=== PATIENT | female | born 1955 ===

== ENCOUNTER 2017-07-29 09:36 | Day surgery (SDC) | payer MEDICARE, SELFPAY ==
[~2017-07-29] VITALS: Ht 157.5 cm; Wt 102.1 kg
[~2017-07-29 09:36] MED LIST: BRINTELLIX20 MG; CARV6.25 PO; CYCL10 PO; GABA300 PO; GLUCOSAMINE &1 EACH PO; HYDHCL25 PO; LEVSOD75 PO; NAPR500; PREG75 PO; TRAZ100 PO; VENL75ER PO; VITAMIN D-32000 UNI1 PO; Voltaren100 GM; Zestril40 MG PO
[2017-07-29] MEDS ORDERED: ALBU90OI61 INH (10:06)
[2017-07-30 04:25] LABS: BASOPHILS ABSOLUTE AUTO 0.01 K/mm3 (0.00-0.23); BASOPHILS PERCENT AUTO 0 % (0-2); EOSINOPHILS PERCENT AUTO 0 % (0-6); Hematocrit 30.5 % (33.0-51.0); Hemoglobin 10.1 g/dL (11.5-16.0); IMMATURE GRAN ABSOLUTE AUTO 0.04 K/mm3 (0.00-0.10); IMMATURE GRAN PERCENT AUTO 1 % (0-1); LYMPHOCYTES ABSOLUTE AUTO 0.91 K/mm3 (0.84-5.20); LYMPHOCYTES PERCENT AUTO 11 % (21-46); MONOCYTES ABSOLUTE AUTO 0.51 K/mm3 (0.16-1.47); MONOCYTES PERCENT AUTO 6 % (4-13); Mean Corpuscular HGB Conc 33.1 g/dL (31.5-36.5); Mean Corpuscular Volume 91 fL (80-100); Mean Platelet Volume 10.6 fL (9.1-12.4); NEUTROPHILS ABSOLUTE AUTO 6.98 K/mm3 (1.96-9.15); NEUTROPHILS PERCENT AUTO 83 % (41-73); Platelet Count 146 K/mm3 (150-400); RDW Coefficient Variation 12.8 % (11.7-14.2); Red Blood Cell Count 3.37 M/mm3 (3.80-5.20); White Blood Cell Count 8.45 K/mm3 (4.00-11.30)
[2017-07-30 04:37] LABS: Bun/Creatinine Ratio 20.2 (12.0-20.0); Calcium, Blood 8.6 mg/dL (8.5-10.1); Creatinine, Blood 1.24 mg/dL (0.40-1.00); Magnesium, Blood 1.9 mg/dL (1.6-2.4); Potassium, Blood 4.9 mmol/L (3.5-5.5)
[2017-07-30] MEDS ORDERED: ASPI325EC PO (14:53)
[2017-07-30] MEDS ORDERED: ROXICODONE5 MG PO (14:53)
[2017-07-30] MEDS ORDERED: Promethazine12.5 M1 PO (14:54)
== END 2017-07-30 15:41 | disposition home or self-care (01) ==
LOC: SURS 09:36 → PRE IP 09:36 → ORSCMMR 09:36 → SURS 09:36 → EDSTATUS 12:30 → PRE IP 12:30 → SURS 15:21 → ORSCMMR 07-30 15:41 → SURS 07-30 15:41
PROVIDERS: Orthopaedic Surgery
PROC: 0SRC0J9 Replacement of Right Knee Joint with Synthetic Substitute, Cemented, Open Approach (ICD-10-PCS; principal; 2017-07-29 12:30)
DX: M17.11 Unilateral primary osteoarthritis, right knee (principal); Z01.818 Encounter for other preprocedural examination; Z01.812 Encounter for preprocedural laboratory examination; I10 Essential (primary) hypertension; I48.91 Unspecified atrial fibrillation; N18.9 Chronic kidney disease, unspecified; J45.909 Unspecified asthma, uncomplicated; Z87.891 Personal history of nicotine dependence; Z79.899 Other long term (current) drug therapy
CPT/HCPCS: 36415; 73560-RT; 80048; 83735; 85025; 86850; 86900; 86901; 88300; 94640; 94760; 97110; 97116; 97162; 97530; C1713; C1776; G8978; G8979; J0171; J0735; J1100; J1170; J1885; J2250; J2370; J2405; J2550; J2795; J3010; J3370; J7120; Q0163

== ENCOUNTER → 2020-03-08 | Outpatient (CLI) | payer MEDICARE, OTHER ==
[~2020-03-08] MED LIST changes: +ALBU90OI61 INH; +ASPI325EC PO; +Promethazine12.5 M1 PO; +ROXICODONE5 MG PO
[2020-03-12 15:08] LABS: ALBUMIN 2.8 g/dL (2.9-4.4); ALPHA-1-GLOBULIN 0.2 g/dL (0.0-0.4); ALPHA-2-GLOBULIN 0.7 g/dL (0.4-1.0); BETA GLOBULIN 0.8 g/dL (0.7-1.3); GAMMA GLOBULIN 1.1 g/dL (0.4-1.8); GLOBULIN, TOTAL 2.9 g/dL (2.2-3.9); IMMUNOGLOBULIN A, QN, SERUM 93 mg/dL (87-352); IMMUNOGLOBULIN G, QN, SERUM 1130 mg/dL (586-1602); IMMUNOGLOBULIN M, QN, SERUM 23 mg/dL (26-217); M-SPIKE 0.7 g/dL (Not Observed); PROTEIN, TOTAL, SERUM 5.7 g/dL (6.0-8.5)
== END | disposition home or self-care (01) ==
LOC: LAB SHORT 18:09 → LAB 18:09
PROVIDERS: Internal Medicine Hematology & Oncology
DX: D47.2 Monoclonal gammopathy (principal)
CPT/HCPCS: 82784; 83883; 84155; 84165; 86334

== ENCOUNTER → 2020-03-17 | Outpatient (CLI) | payer MEDICARE | END | disposition home or self-care (01) | LOC: LAB EV 11:00 → LAB SHORT 11:00 | DX: K21.9 Gastro-esophageal reflux disease without esophagitis (principal) | CPT/HCPCS: 87338 ==

== ENCOUNTER → 2020-05-23 | Outpatient (CLI) | payer MEDICARE ==
[~2020-05-23] MED LIST changes: +ACETAMINOP160 MG/51 PO; +ALPR.25 PO; +ATROPINE SULFATE2 M5 SL; +BUPR150ER PO; +DEXA4 PO; +FENTANYL1 EA10 TD; +Kristalose20 GM PO; +OMEP20ER PO; +ONDA4ODT MM; +ONDA4ODT SL; +OXYB5 PO; +QUET200 PO; +QUET300 PO; +TRANSDERM-SCOP1 EAC4 TD
[2020-05-23 15:50] LABS: BASOPHILS ABSOLUTE AUTO 0.03 K/mm3 (0.00-0.23); BASOPHILS PERCENT AUTO 0 % (0-2); EOSINOPHILS ABSOLUTE AUTO 0.08 K/mm3 (0.00-0.68); EOSINOPHILS PERCENT AUTO 1 % (0-6); Hematocrit 39.2 % (33.0-51.0); Hemoglobin 13.6 g/dL (11.5-16.0); IMMATURE GRAN ABSOLUTE AUTO 0.03 K/mm3 (0.00-0.10); IMMATURE GRAN PERCENT AUTO 0 % (0-1); LYMPHOCYTES ABSOLUTE AUTO 0.75 K/mm3 (0.84-5.20); LYMPHOCYTES PERCENT AUTO 11 % (21-46); MONOCYTES ABSOLUTE AUTO 0.74 K/mm3 (0.16-1.47); MONOCYTES PERCENT AUTO 11 % (4-13); Mean Corpuscular HGB 31.1 pg (26.0-34.0); Mean Corpuscular HGB Conc 34.7 g/dL (31.5-36.5); Mean Corpuscular Volume 90 fL (80-100); Mean Platelet Volume 11.2 fL (9.1-12.4); NEUTROPHILS ABSOLUTE AUTO 5.16 K/mm3 (1.96-9.15); NEUTROPHILS PERCENT AUTO 76 % (41-73); Platelet Count 213 K/mm3 (150-400); RDW Coefficient Variation 12.6 % (11.7-14.2); RDW Standard Deviation 41.3 fL (35.1-46.3); Red Blood Cell Count 4.38 M/mm3 (3.80-5.20); White Blood Cell Count 6.79 K/mm3 (4.00-11.30)
[2020-05-23 16:01] LABS: Bun/Creatinine Ratio 16.6 (12.0-20.0); Calcium, Blood 9.9 mg/dL (8.5-10.1); Creatinine, Blood 1.45 mg/dL (0.40-1.00)
== END | disposition home or self-care (01) ==
LOC: LAB SHORT 15:45 → LAB 15:45
PROVIDERS: Family Medicine
DX: R11.2 Nausea with vomiting, unspecified (principal)
CPT/HCPCS: 80048; 83690; 85025

== ENCOUNTER 2020-06-16 14:03 | Inpatient (IN) | payer MEDICARE ==
[~2020-06-16] VITALS: Ht 160 cm; Wt 65.8 kg
[~2020-06-16 14:03] MED LIST changes: -ACETAMINOP160 MG/51 PO; -ALPR.25 PO; -ATROPINE SULFATE2 M5 SL; -BUPR150ER PO; -DEXA4 PO; -FENTANYL1 EA10 TD; -Kristalose20 GM PO; -OMEP20ER PO; -ONDA4ODT MM; -ONDA4ODT SL; -OXYB5 PO; -QUET200 PO; -QUET300 PO; -TRANSDERM-SCOP1 EAC4 TD
[2020-06-16 14:40] LABS: BASOPHILS ABSOLUTE AUTO 0.04 K/mm3 (0.00-0.23); BASOPHILS PERCENT AUTO 1 % (0-2); EOSINOPHILS ABSOLUTE AUTO 0.06 K/mm3 (0.00-0.68); EOSINOPHILS PERCENT AUTO 1 % (0-6); Hematocrit 36.7 % (33.0-51.0); Hemoglobin 12.5 g/dL (11.5-16.0); IMMATURE GRAN ABSOLUTE AUTO 0.04 K/mm3 (0.00-0.10); IMMATURE GRAN PERCENT AUTO 1 % (0-1); LYMPHOCYTES ABSOLUTE AUTO 0.49 K/mm3 (0.84-5.20); LYMPHOCYTES PERCENT AUTO 7 % (21-46); MONOCYTES ABSOLUTE AUTO 0.54 K/mm3 (0.16-1.47); MONOCYTES PERCENT AUTO 7 % (4-13); Mean Corpuscular HGB Conc 34.1 g/dL (31.5-36.5); Mean Corpuscular Volume 88 fL (80-100); NEUTROPHILS ABSOLUTE AUTO 6.23 K/mm3 (1.96-9.15); NEUTROPHILS PERCENT AUTO 84 % (41-73); Platelet Count 301 K/mm3 (150-400); RDW Coefficient Variation 11.9 % (11.7-14.2); RDW Standard Deviation 38.6 fL (35.1-46.3); Red Blood Cell Count 4.17 M/mm3 (3.80-5.20)
[2020-06-16] MEDS ORDERED: OXYB5 PO (14:43)
[2020-06-16 15:13] LABS: Albumin, Blood 2.9 g/dL (3.4-5.0); Albumin/Globulin Ratio 0.6 (0.8-1.8); Bilirubin, Total 1.1 mg/dL (0.1-1.0); Creatinine, Blood 1.75 mg/dL (0.40-1.00); Globulin, Blood 4.8 g/dL (2.2-4.0); Potassium, Blood 2.8 mmol/L (3.5-5.5); Thyroid Stimulating Hormone 1.49 uIU/mL (0.360-4.800); Total Protein, Blood 7.7 g/dL (6.4-8.2)
[2020-06-16 15:30] LABS: Source, Urine Clean Catch
[2020-06-16 15:33] LABS: Appearance, Urine Hazy (Clear); Blood, Urine Neg (Neg); Color, Urine Amber (P-Yellow); Glucose Qualitative, Urine Neg (Neg); Ketones, Urine 2+ (Neg); Leukocyte Esterase, Urine 1+ (Neg); Nitrite, Urine Neg (Neg); Protein, Urine 2+ (Neg); Urobilinogen, Urine 2+ (Normal)
[2020-06-16 15:49] LABS: Bilirubin, Urine 1+ (Neg)
[2020-06-16 15:50] LABS: Bacteria Many /hpf; Hyaline Casts 0-2 /lpf (0-2); Squamous Epithelial Cells Many /hpf (Few)
[2020-06-17 05:26] LABS: BASOPHILS ABSOLUTE AUTO 0.03 K/mm3 (0.00-0.23); BASOPHILS PERCENT AUTO 1 % (0-2); EOSINOPHILS ABSOLUTE AUTO 0.12 K/mm3 (0.00-0.68); EOSINOPHILS PERCENT AUTO 2 % (0-6); Hematocrit 30.5 % (33.0-51.0); Hemoglobin 10.4 g/dL (11.5-16.0); IMMATURE GRAN ABSOLUTE AUTO 0.03 K/mm3 (0.00-0.10); IMMATURE GRAN PERCENT AUTO 1 % (0-1); LYMPHOCYTES ABSOLUTE AUTO 0.45 K/mm3 (0.84-5.20); LYMPHOCYTES PERCENT AUTO 9 % (21-46); MONOCYTES ABSOLUTE AUTO 0.53 K/mm3 (0.16-1.47); MONOCYTES PERCENT AUTO 10 % (4-13); Mean Corpuscular HGB Conc 34.1 g/dL (31.5-36.5); Mean Corpuscular Volume 88 fL (80-100); NEUTROPHILS ABSOLUTE AUTO 4.13 K/mm3 (1.96-9.15); NEUTROPHILS PERCENT AUTO 78 % (41-73); Platelet Count 208 K/mm3 (150-400); RDW Coefficient Variation 11.9 % (11.7-14.2); RDW Standard Deviation 38.3 fL (35.1-46.3); Red Blood Cell Count 3.47 M/mm3 (3.80-5.20); White Blood Cell Count 5.29 K/mm3 (4.00-11.30)
--- NOTE | 2020-06-17 06:23 | NUR ---
SHIFT + ADMISSION SUMMARY PT ARRIVED TO UNIT @ APPROX 2004 FROM ED VIA WHEELCHAIR. PT WAS ABLE TO TRANSFER HERSELF TO THE BED AND APPEARED TO HAVE A STEADY GAIT. PT WAS ALSO ABLE TO AMBULATE HERSELF TO THE BATHROOM. PT WAS A&O, ABLE TO ANSWER QUESTIONS APPROPRAITELY. PT HAS HAD NO REPORTS OF NAUSEA SINCE ARRIVAL, SHE WAS TREATED FOR PAIN X1 PER EMAR. FIRST BAG OF NS STARTED AND STILL RUNNING. TELE MONITOR IN PLACE, RUNNING SINUS TACHYCARDIC T/O SHIFT. PT SELPT WELL THROUGH THE NIGHT AND IS STILL CURRENTLY SLEEPING. CALL LIGHT IS WITHIN REACH. PT APPEARS TO BE IN NO DISTRESS.
[2020-06-17 06:26] LABS: Albumin, Blood 2.4 g/dL (3.4-5.0); Albumin/Globulin Ratio 0.6 (0.8-1.8); Bilirubin, Total 0.9 mg/dL (0.1-1.0); Bun/Creatinine Ratio 35.1 (12.0-20.0); Creatinine, Blood 1.51 mg/dL (0.40-1.00); Globulin, Blood 3.9 g/dL (2.2-4.0); Total Protein, Blood 6.3 g/dL (6.4-8.2)
--- NOTE | 2020-06-17 15:44 | NUR ---
OFFERED PT HEAT/COLD THERAPY AND PT DENIED. NURSE AWARE.
--- NOTE | 2020-06-17 18:07 | NUR ---
SHIFT SUMMARY PT HAS HAD NAUSEA THROUGH OUT THE SHIFT. ZOFRAN AND PHENERGAN ADMINISTERED MULTIPLE TIMES FOR NAUSEA. NO EMESIS. MEDICATED FOR BACK PAIN X2 THIS SHIFT WITH FENTANYL. PT EATING SMALL AMOUNTS. UP TO BATHROOM WITH STAND-BY ASSIST. NO ACUTE CHANGES THIS SHIFT. CALL LIGHT IN REACH. WILL CONTINUE TO MONITOR AND REPORT TO ONCOMING RN.
--- NOTE | 2020-06-17 22:47 | NUR ---
AWAKE EARLIER, VOICED NAUSEA AND PAIN. RECEIVED ANIEMETIC AND ANALGESIC - SEE MAR FOR DETAILS. IVF OF NS WITH 20 mEq OF KCL INFUSING AT 125 ML/HR. CURRENTLY RESTING QUIETLY. CALL LIGHT IN REACH.
[2020-06-18 05:16] LABS: BASOPHILS ABSOLUTE AUTO 0.02 K/mm3 (0.00-0.23); BASOPHILS PERCENT AUTO 0 % (0-2); EOSINOPHILS ABSOLUTE AUTO 0.11 K/mm3 (0.00-0.68); EOSINOPHILS PERCENT AUTO 2 % (0-6); Hematocrit 31.4 % (33.0-51.0); Hemoglobin 10.2 g/dL (11.5-16.0); IMMATURE GRAN ABSOLUTE AUTO 0.06 K/mm3 (0.00-0.10); IMMATURE GRAN PERCENT AUTO 1 % (0-1); LYMPHOCYTES ABSOLUTE AUTO 0.38 K/mm3 (0.84-5.20); LYMPHOCYTES PERCENT AUTO 8 % (21-46); MONOCYTES ABSOLUTE AUTO 0.45 K/mm3 (0.16-1.47); MONOCYTES PERCENT AUTO 9 % (4-13); Mean Corpuscular HGB 29.6 pg (26.0-34.0); Mean Corpuscular HGB Conc 32.5 g/dL (31.5-36.5); Mean Corpuscular Volume 91 fL (80-100); Mean Platelet Volume 10.5 fL (9.1-12.4); NEUTROPHILS ABSOLUTE AUTO 3.75 K/mm3 (1.96-9.15); NEUTROPHILS PERCENT AUTO 79 % (41-73); Platelet Count 237 K/mm3 (150-400); RDW Standard Deviation 40.1 fL (35.1-46.3); Red Blood Cell Count 3.45 M/mm3 (3.80-5.20); White Blood Cell Count 4.77 K/mm3 (4.00-11.30)
[2020-06-18 05:36] LABS: Magnesium, Blood 2.2 mg/dL (1.6-2.4)
[2020-06-18 05:37] LABS: Albumin, Blood 2.4 g/dL (3.4-5.0); Anion Gap 5 mmol/L (6-16); Blood Urea Nitrogen 34 mg/dL (8-24); Bun/Creatinine Ratio 26.8 (12.0-20.0); CO2, Blood 30 mmol/L (21-32); Calcium, Blood 8.9 mg/dL (8.5-10.1); Chloride, Blood 100 mmol/L (98-108); Creatinine, Blood 1.27 mg/dL (0.40-1.00); Glomerular Filtration Rate 45 (60-); Glucose, Blood 84 mg/dL (70-99); Phosphorus, Blood 1.4 mg/dL (2.5-4.9); Potassium, Blood 4.2 mmol/L (3.5-5.5); Sodium, Blood 135 mmol/L (136-145)
[2020-06-18 05:48] LABS: International Normalized Ratio 0.99; Prothrombin Time Results 10.6 Sec (9.7-11.5)
--- NOTE | 2020-06-18 06:26 | NUR ---
SHIFT SUMMARY AWAKE AT INTERVLS WITH C/O NAUSEA AND PAIN. HAS RECEIVED ANALGESICS AND ANTIEMETICS THROUGHOUT SHIFT - SEE MAR FOR DETAILS. IVF INFUSING AT 125 ML/HR. CALL LIGHT IN REACH.
[2020-06-18] MEDS ORDERED: ONDA4ODT MM (15:48)
[2020-06-18] MEDS ORDERED: BUPR150ER PO (15:48)
--- NOTE | 2020-06-18 16:58 | NUR ---
DISCHARGE DISCHARGE INSTRUCTIONS, MEDICATION LIST AND FOLLOW UP APPOINTMENT REVIEWED WITH PT. QUESTIONS/CONCERNS ANSWERED. PT VERBALLY INDICATED UNDERSTANDING OF ALL INSTRUCTIONS RECEIVED. PT ESCORTED OUT VIA W/C BY DARLENE
== END 2020-06-18 16:57 | disposition home or self-care (01) | DRG 436 ==
LOC: ER 14:03 → MEDS 14:04
PROVIDERS: Emergency Medicine; Internal Medicine Gastroenterology; Physician Assistant; ADMIT Internal Medicine
PROC: 0FB03ZX Excision of Liver, Percutaneous Approach, Diagnostic (ICD-10-PCS; principal; 2020-06-18)
DX: C25.9 Malignant neoplasm of pancreas, unspecified (principal); N17.9 Acute kidney failure, unspecified; E87.1 Hypo-osmolality and hyponatremia; E86.0 Dehydration; I10 Essential (primary) hypertension; F32.9 Major depressive disorder, single episode, unspecified; R16.0 Hepatomegaly, not elsewhere classified; N39.41 Urge incontinence; K21.9 Gastro-esophageal reflux disease without esophagitis; E87.6 Hypokalemia; E03.9 Hypothyroidism, unspecified; I12.9 Hypertensive chronic kidney disease with stage 1 through stage 4 chronic kidney disease, or unspecified chronic kidney disease; N18.30 Chronic kidney disease, stage 3 unspecified; E83.39 Other disorders of phosphorus metabolism; D64.9 Anemia, unspecified
CPT/HCPCS: 36415; 47000; 71046; 71260; 74160; 74176; 76705; 77012; 80053; 80069; 81001; 83690; 83735; 84443; 84484; 85025; 85610; 85730; 87086; 88307; 88341; 88342; 93005; 93010; 96365; 96366; 96372; 96375; 96376; 99285-25; A9270; G0378; J1170; J1650; J2405; J2550; J3010; J3480; J7030; Q9967

== ENCOUNTER 2020-06-25 09:50 | Emergency (ER) | payer MEDICARE ==
[~2020-06-25] VITALS: Ht 160 cm; Wt 68.5 kg
[~2020-06-25 09:50] MED LIST changes: +BUPR150ER PO; +ONDA4ODT MM; +OXYB5 PO
[2020-06-25 11:00] LABS: Calcium, Ionized (POC) 1.18 mmol/L (1.10-1.46); Chloride (POC) 88 mmol/L (98-108); Creatinine (POC) 1.2 mg/dL (0.6-1.0); Glucose (ISTAT POC) 113 mg/dL (70-99); Hemoglobin (POC) 10.5 g/dL (12.0-16.0); Potassium (POC) 3.3 mmol/L (3.5-5.5); Sodium (POC) 134 mmol/L (135-148); Total CO2 (POC) 38 mmol/L (21-32)
[2020-06-25] MEDS ORDERED: Kristalose20 GM PO (12:23)
[2020-06-25] MEDS ORDERED: ONDA4ODT SL (12:23)
== END 2020-06-25 12:57 | disposition home or self-care (01) ==
LOC: ER 09:50
PROVIDERS: Emergency Medicine
DX: C22.9 Malignant neoplasm of liver, not specified as primary or secondary (principal); K59.00 Constipation, unspecified; I10 Essential (primary) hypertension; E03.9 Hypothyroidism, unspecified; Z79.899 Other long term (current) drug therapy; Z79.82 Long term (current) use of aspirin; Z88.1 Allergy status to other antibiotic agents; Z88.8 Allergy status to other drugs, medicaments and biological substances
CPT/HCPCS: 36415; 74018; 80047; 85014; 96374; 99284-25; A9270; J2405; J7120

== ENCOUNTER 2020-06-30 12:12 | Inpatient (IN) | payer MEDICARE ==
[~2020-06-30] VITALS: Ht 160 cm; Wt 145.3 kg
[~2020-06-30 12:12] MED LIST changes: +Kristalose20 GM PO; +ONDA4ODT SL
[2020-06-30 12:59] LABS: BASOPHILS ABSOLUTE AUTO 0.02 K/mm3 (0.00-0.23); BASOPHILS PERCENT AUTO 0 % (0-2); EOSINOPHILS PERCENT AUTO 0 % (0-6); Hematocrit 32.3 % (33.0-51.0); Hemoglobin 10.9 g/dL (11.5-16.0); IMMATURE GRAN ABSOLUTE AUTO 0.09 K/mm3 (0.00-0.10); IMMATURE GRAN PERCENT AUTO 1 % (0-1); LYMPHOCYTES ABSOLUTE AUTO 0.24 K/mm3 (0.84-5.20); LYMPHOCYTES PERCENT AUTO 3 % (21-46); MONOCYTES ABSOLUTE AUTO 0.41 K/mm3 (0.16-1.47); MONOCYTES PERCENT AUTO 5 % (4-13); Mean Corpuscular HGB 29.7 pg (26.0-34.0); Mean Corpuscular HGB Conc 33.7 g/dL (31.5-36.5); Mean Corpuscular Volume 88 fL (80-100); Mean Platelet Volume 10.7 fL (9.1-12.4); NEUTROPHILS PERCENT AUTO 92 % (41-73); NRBC ABSOLUTE 0.02 K/mm3 (0.00-0.02); NRBC Auto 0.2 /100 WBC (0.0-0.2); Platelet Count 191 K/mm3 (150-400); RDW Coefficient Variation 13.9 % (11.7-14.2); RDW Standard Deviation 43.2 fL (35.1-46.3); Red Blood Cell Count 3.67 M/mm3 (3.80-5.20); White Blood Cell Count 8.86 K/mm3 (4.00-11.30)
[2020-06-30 13:18] LABS: Albumin, Blood 2.5 g/dL (3.4-5.0); Albumin/Globulin Ratio 0.5 (0.8-1.8); Bilirubin, Total 4.7 mg/dL (0.1-1.0); Bun/Creatinine Ratio 21.3 (12.0-20.0); Calcium, Blood 9.8 mg/dL (8.5-10.1); Creatinine, Blood 2.67 mg/dL (0.40-1.00); Magnesium, Blood 2.3 mg/dL (1.6-2.4); Potassium, Blood 2.9 mmol/L (3.5-5.5); Total Protein, Blood 7.5 g/dL (6.4-8.2)
[2020-06-30] MEDS ORDERED: DEXA4 PO (14:47)
[2020-06-30] MEDS ORDERED: FENTANYL1 EA10 TD (14:48)
[2020-06-30] MEDS ORDERED: OMEP20ER PO (14:49)
[2020-06-30] MEDS ORDERED: QUET200 PO (14:49)
--- NOTE | 2020-06-30 19:02 | NUR ---
SHIFT SUMMARY DORA ARRIVED WITH FROM ER AT 6PM. LR BOLUS FINISHING, PT ORIENTED TO SELF AND HOSPITAL, UNSURE YEAR, CITY, CONFUSED SPEECH. BED ALARM ON. DENIES PAIN. DR SYKES AT BEDSIDE. POSSIBLE CHANGE TO COMFORT CARE, PT TEARFUL AND REQUESTED MACHINE II COREMAKER TOMORROW MORNING. REPORT GIVEN TO NIGHT NURSE
[2020-06-30] MEDS ORDERED: QUET300 PO (21:18)
[2020-07-01 05:45] LABS: BASOPHILS ABSOLUTE AUTO 0.01 K/mm3 (0.00-0.23); BASOPHILS PERCENT AUTO 0 % (0-2); EOSINOPHILS PERCENT AUTO 0 % (0-6); Hematocrit 27.6 % (33.0-51.0); Hemoglobin 9.3 g/dL (11.5-16.0); IMMATURE GRAN ABSOLUTE AUTO 0.08 K/mm3 (0.00-0.10); IMMATURE GRAN PERCENT AUTO 2 % (0-1); LYMPHOCYTES ABSOLUTE AUTO 0.21 K/mm3 (0.84-5.20); LYMPHOCYTES PERCENT AUTO 4 % (21-46); MONOCYTES ABSOLUTE AUTO 0.34 K/mm3 (0.16-1.47); MONOCYTES PERCENT AUTO 7 % (4-13); Mean Corpuscular HGB 29.6 pg (26.0-34.0); Mean Corpuscular HGB Conc 33.7 g/dL (31.5-36.5); Mean Corpuscular Volume 88 fL (80-100); Mean Platelet Volume 10.6 fL (9.1-12.4); NEUTROPHILS PERCENT AUTO 88 % (41-73); Platelet Count 139 K/mm3 (150-400); RDW Coefficient Variation 14.4 % (11.7-14.2); RDW Standard Deviation 45.3 fL (35.1-46.3); Red Blood Cell Count 3.14 M/mm3 (3.80-5.20); White Blood Cell Count 5.24 K/mm3 (4.00-11.30)
[2020-07-01 06:08] LABS: Anion Gap 13 mmol/L (6-16); Blood Urea Nitrogen 57 mg/dL (8-24); Bun/Creatinine Ratio 23.8 (12.0-20.0); CO2, Blood 33 mmol/L (21-32); Calcium, Blood 8.8 mg/dL (8.5-10.1); Chloride, Blood 88 mmol/L (98-108); Creatinine, Blood 2.39 mg/dL (0.40-1.00); Glomerular Filtration Rate 22 (60-); Glucose, Blood 110 mg/dL (70-99); Magnesium, Blood 2.1 mg/dL (1.6-2.4); Phosphorus, Blood 2.9 mg/dL (2.5-4.9); Sodium, Blood 134 mmol/L (136-145)
--- NOTE | 2020-07-01 06:44 | NUR ---
SHIFT SUMMARY PT IS A 64 Y/O FEMALE, ADMITTED FOR [facility]. SHE IS A&O X SELF, WITH A HX OF DEMENTIA, VERY CONFUSED AT NIGHT. NO S/S OR COMPLAINTS OF PAIN, NAUSEA OR SOB. TELE SHOWED ST IN THE 120S THROUGH THE NIGHT. VITAL SIGNS OTHERWISE STABLE. PT RECEIVING NS @ 75 ML/HR. ONE K+ RIDER RECEIVED AT HS. NO OTHER ACUTE CHANGES IN PT CONDITIONS NOTED. WILL CONTINUE TO MONITOR AND TREAT PER EMAR UNITL HAND OFF TO DAY SHIFT RN.
[2020-07-01 07:04] LABS: Albumin/Globulin Ratio 0.5 (0.8-1.8); Bilirubin, Direct 3.6 mg/dL (0.0-0.3); Bilirubin, Indirect 1.1 mg/dL (0.1-0.7); Bilirubin, Total 4.7 mg/dL (0.1-1.0)
--- NOTE | 2020-07-01 10:44 | NUR ---
Was in pt's room brushing out wili in hair and braiding it so it wouldn't tangle back up.
--- NOTE | 2020-07-01 11:18 | NUR ---
Call back - Spoke with staff before entering room. Pt is minimally responsive to engagement. At times she closes her eyes before drifting off. Pt unable to hold conversation. This process description writer offers a verbal prayer on behalf of her well-being.
[2020-07-02 05:19] LABS: BASOPHILS ABSOLUTE AUTO 0.01 K/mm3 (0.00-0.23); BASOPHILS PERCENT AUTO 0 % (0-2); EOSINOPHILS ABSOLUTE AUTO 0.01 K/mm3 (0.00-0.68); EOSINOPHILS PERCENT AUTO 0 % (0-6); Hematocrit 27.4 % (33.0-51.0); Hemoglobin 9.2 g/dL (11.5-16.0); IMMATURE GRAN ABSOLUTE AUTO 0.09 K/mm3 (0.00-0.10); IMMATURE GRAN PERCENT AUTO 2 % (0-1); LYMPHOCYTES ABSOLUTE AUTO 0.26 K/mm3 (0.84-5.20); LYMPHOCYTES PERCENT AUTO 6 % (21-46); MONOCYTES ABSOLUTE AUTO 0.36 K/mm3 (0.16-1.47); MONOCYTES PERCENT AUTO 9 % (4-13); Mean Corpuscular HGB 29.7 pg (26.0-34.0); Mean Corpuscular HGB Conc 33.6 g/dL (31.5-36.5); Mean Corpuscular Volume 88 fL (80-100); Mean Platelet Volume 11.1 fL (9.1-12.4); NEUTROPHILS ABSOLUTE AUTO 3.34 K/mm3 (1.96-9.15); NEUTROPHILS PERCENT AUTO 82 % (41-73); Platelet Count 124 K/mm3 (150-400); RDW Coefficient Variation 14.6 % (11.7-14.2); RDW Standard Deviation 46.7 fL (35.1-46.3); White Blood Cell Count 4.07 K/mm3 (4.00-11.30)
[2020-07-02 05:48] LABS: Albumin, Blood 1.8 g/dL (3.4-5.0); Albumin/Globulin Ratio 0.4 (0.8-1.8); Bilirubin, Total 4.2 mg/dL (0.1-1.0); Bun/Creatinine Ratio 27.9 (12.0-20.0); Calcium, Blood 8.7 mg/dL (8.5-10.1); Creatinine, Blood 2.04 mg/dL (0.40-1.00); Globulin, Blood 4.2 g/dL (2.2-4.0); Potassium, Blood 3.4 mmol/L (3.5-5.5)
--- NOTE | 2020-07-02 06:44 | NUR ---
SHIFT SUMMARY PT IS A 64 Y/O FEMALE, ADMITTED FOR [facility]. A&O X SELF, BEDREST/2P MAX ASSIST DUE TO VERY HIGH FALL RISK. AT START OF SHIFT, PT WAS VERY LETHARGIC, AND WOULD NOT FULLY WAKE TO STIMULATION. THIS AM AROUND 0200, PT FULLY AWOKE BUT IS STILL VERY CONFUSED. NO C/O ACUTE PAIN, NAUSEA OR SOB. VITAL SIGNS STABLE. NO OTHER ACUTE CHANGES IN PT CONDITION NOTED. WILL CONTINUE TO MONITOR AND TREAT PER EMAR UNTIL HAND OFF TO DAY SHIFT RN.
--- NOTE | 2020-07-02 11:17 | NUR ---
ASSUMED PT CARE @0700. CLIENT IS MORE ALERT THAN YESTERDAY, BUT CONFUSED TO DAY AND SITUATION. SHE DENIES PAIN. CLIENT 2 MAX ASSIST. POOR APPETITE. SON CONSULTED PALIATIVE CARE AND WOULD LIKE TO MOVE FORWARD WITH HOSPICE CARE. CHIOMA CONTINUE TO MONITOR.
--- NOTE | 2020-07-02 11:56 | NUR ---
Spoke with son on the phone they had a family meeting. The plan is to transition to comfort care. Advised physician and orders started. Family to come in to visit. [facility] to do intake tomorrow. [employer] workforce investment act career manager coordinating care.
--- NOTE | 2020-07-02 15:31 | NUR ---
CARE COORDINATION REFERRAL - ADMIT: 06/30/20 DISCHARGE: DX: ACUTE RENAL FAILURE, PANCREATIC CANCER CC: [email or web address] ADMIT: 06/16/20 DISCHARGE: 06/18/20 DX: DEHYDRATION, GENERALIZED WEAKNESS CC: AUGUST CALL: REINALDO SANCHEZ (CHILD) HOME PHONE: RESIDENCE: HOME CAREGIVER: - ELIZABETH SANCHEZ (CHILD) - MAKING ALL CARE DECISIONS HOME PHONE: DX: LIVER AND PANCREATIC CANCER, HTN, CKD-STAGE 3, SEE LIST DME: HOSPITAL BED, BEDSIDE COMMODE CCM: NONE HOME HEALTH: NONE SUMMARY: ADMIT: 06/30/20 07/02/20- PT HAS BEEN ACCEPT BY [facility] FOR HOSPICE CARE. PT WILL BE D/C HOME TOMORROW. DORINA WITH [facility]ICE GAVE DOCUMENTS AND RX THAT NEED SIGNATURE. CONTACTED DR. TORO TO SIGN AND WILL RETURN TO DORINA PRIOR TO PT'S D/C. -LIGIA 07/02/20- SPOKE WITH MER WITH PALLATIVE CARE. THE FAMILY HAS DECIDED TO PUT PT ON COMFORT CARE AND SHE CONTACTED DORINA WITH [facility]. DORINA STATED THAT THEY ARE CURRENTLY REVIEWING THE PT AND ONCE APPROVED, THEY CAN START SERVICES TOMORROW. ONCE SHE HAS CONFIRMATION, SHE WILL LET SALES AND TRAINING SPECIALIST KNOW. PT'S CODE STATUS HAS BEEN CHANGED TO DNR. CALLED AND SPOKE WITH SON, HE STATED THAT THEY WOULD LIKE TO HAVE HOSPITAL BED AND BEDSIDE COMMODE FOR THE HOME. THEY CAN TAKE PT HOME ONCE THEY HAVE EVERYTHING THEY NEED TO TAKE CARE OF HER. -LIGIA
--- NOTE | 2020-07-02 16:54 | NUR ---
COMFORT CARE INITATED. FAMILY PRESENT AND SUPPORTIVE. 16F 10CC URINARY CATHETER PLACED USING STERILE PROCESS D/T CLIENT FREQUENT URGE TO URINATE WITHOUT VOID. 800CC DARK OUMAR URINE RETURNED. CLIENT TOLERATED WELL.
--- NOTE | 2020-07-02 19:18 | NUR ---
Spiritual care note: Mrs. Rich appeared frail and confused. She repeatedly asked for her and son. She did not appear able to focus or engage in conversation. She did allow me to pray for her which she appeared to appreciate. No family present at time of visit. I will remain available.
--- NOTE | 2020-07-02 19:23 | NUR ---
Comfort care initiated. IV saline locked. 16F 10cc urinary cath placed. Family present and involved. Pt to discharge home with Hospice tomorrow.
--- NOTE | 2020-07-03 06:42 | NUR ---
SHIFT SUMMARY PATIENT WAS QUITE CONFUSED OVERNIGHT. MEDICATED PER EMAR FOR PAIN. PATIENT HAD A FALL AT 0100 AND SUSTAINED AN ABRASION ON HER L KNEE. PHYSICIAN AND FAMILY NOTIFIED. IV PATENT AND FLUSHED. BED IN LOWEST POSITION WITH WHEELS LOCKED AND ALARM ON. CALL LIGHT WITHIN REACH. REPORT GIVEN TO ONCOMING RN.
[2020-07-03] MEDS ORDERED: ACETAMINOP160 MG/51 PO (10:08)
[2020-07-03] MEDS ORDERED: ALPR.25 PO (10:09)
[2020-07-03] MEDS ORDERED: ATROPINE SULFATE2 M5 SL (10:10)
[2020-07-03] MEDS ORDERED: TRANSDERM-SCOP1 EAC4 TD (10:10)
--- NOTE | 2020-07-03 14:08 | NUR ---
Met pt. getting ready to go home prayed for pt. and wish her all the best while at home.
--- NOTE | 2020-07-03 15:21 | NUR ---
07/03/20- Pt was d/c on hospice care through [facility]. Nacho Devlin is the family contact lens blocker and cutter. -anuj
== END 2020-07-03 10:44 | disposition hospice, home (50) | DRG 435 ==
LOC: ER 12:12 → MEDS 12:13
PROVIDERS: Physician Assistant; ADMIT Hospitalist
DX: C25.0 Malignant neoplasm of head of pancreas (principal); G92 Toxic encephalopathy; N17.9 Acute kidney failure, unspecified; B37.0 Candidal stomatitis; E87.1 Hypo-osmolality and hyponatremia; C78.7 Secondary malignant neoplasm of liver and intrahepatic bile duct; Z66 Do not resuscitate; Z51.5 Encounter for palliative care; B37.9 Candidiasis, unspecified; E87.6 Hypokalemia; E86.9 Volume depletion, unspecified; E88.09 Other disorders of plasma-protein metabolism, not elsewhere classified; M54.9 Dorsalgia, unspecified; F32.9 Major depressive disorder, single episode, unspecified; D63.8 Anemia in other chronic diseases classified elsewhere; E03.9 Hypothyroidism, unspecified; F41.9 Anxiety disorder, unspecified; I10 Essential (primary) hypertension; M19.90 Unspecified osteoarthritis, unspecified site; Z88.1 Allergy status to other antibiotic agents; Z88.8 Allergy status to other drugs, medicaments and biological substances; Z79.82 Long term (current) use of aspirin; Z79.899 Other long term (current) drug therapy; Z87.891 Personal history of nicotine dependence
CPT/HCPCS: 36415; 70450; 76770; 80053; 80069; 80076; 82140; 82947; 83735; 85025; 93971; 96360; 99285-25; A9270; J1644; J2405; J3480; J7030; J7120